=== PATIENT | female | born 1980 ===

== ENCOUNTER 2021-07-02 13:30 | Outpatient (RCR) | payer OTHER, SELFPAY ==
--- NOTE | 2021-04-28 10:46 | PTOPEVAL ---
Thank you for referring Kiara Sarmiento to [facility].? The patient is scheduled to be seen for therapy? 2 x/week for 8 weeks. Please review, sign, date and return this plan of care LEE. I agree with and certify that the following plan of care is medically necessary. 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 Then the symptoms progressed into shoulder and UE. TOS decompression for pec tenonotomy 03/28/21. She was not given post-op HEP. Subjective Information She reports symptoms are Query Text:As Reported By Patient/ getting worse after surgery. Family She c/o symptoms into tara. C/o muscular pain of chest region, c/o numbness of tara UE and hands, burning of inside of tara arms. She is unable to type or write. She limited to 5# of lifting. She is limited with reaching, ADL's, prolonged UE use, driving > 20 min. 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 She c/o difficulty with sleeping. She is sleeping on her back currently, she prefers the stomach. 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 Previous Treatments Previous Treatments For This Problem yes, 07/07 Pain Assessment Timing of Pain Assessment Timing of Pain Assessment Assessment Pain Scale Pain Scale Used Numeric (1 - 10) Self Report Pain Assessment Right Arm(s) Reported Pain Level 5 Pain Description Burning,Dull,Numbness, Radiating,Tender on Palpation, Tightness,Tingling Pain Frequency Chronic,Continuous Lowest Pain Intensity 4 Greatest Pain Intensity 8 Pain Aggravating Factors ADL's,Bending,Exercise/ Activity,Lifting,Prolonged Position Pain Behaviors Anxious Left Arm(s) Reported Pain Level 5 Pain Description Burning,Phantom,Radiating,
--- NOTE | 2021-05-15 15:11 | PTOPEVAL ---
Physical Therapy Progress Note Thank you for referring Kiara Sarmiento to [facility].? Kiara has attended 6 therapy visits to address UE impairments related to NTOS surgery. See summary below for progress and updated objective information. The patient is scheduled to be seen for therapy? 2 x/week for 6 weeks. Please review, sign, date and return this plan of care LEE. I agree with and certify that the following plan of care is medically necessary. 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 Then the symptoms progressed into shoulder and UE. TOS decompression for pec tenonotomy 03/28/21. She was not given post-op HEP. Subjective Information She reports the pain symptoms Query Text:As Reported By Patient/ have improved slightly with Family therapy and stretching, but the numbness and tingling has increased. C/o muscular pain of chest region and trap/shoulder blade region. She is unable to perform fine motor task without increased numbness. She limited to 5# of lifting. Continued limitations with reaching, ADL 's, prolonged UE use, driving > 20 min. She remains limited with yoga coordinator and repeated UE task. She c/o difficulty with sleeping. She is sleeping on her back currently, for 3-4 hr intervals. She sleeps in the bed. 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 Pain Assessment Right Arm(s) Reported Pain Level 6 Pain Description Burning,Dull,Numbness, Radiating,Tender on Palpation, Tightness,Tingling Pain Radiation Right Arm Pain Frequency Chronic,Continuous Lowest Pain Intensity 4 Greatest Pain Intensity 7 Pain Aggravating Factors ADL's,Bending,Exercise/ Activity,Lifting,Prolonged
--- NOTE | 2021-05-19 12:47 | PCPTNOTE ---
Patient called & cancelled scheduled appointment this date due to sickness.
--- NOTE | 2021-05-22 09:41 | PCPTNOTE ---
Patient called & cancelled scheduled appointment this date due to having another scheduled MD appointment.
--- NOTE | 2021-06-09 12:41 | PCPTNOTE ---
Patient called & cancelled scheduled appointment this date due to increase pain into UE and LE feeling unable to be in a car for one hour to get here for her appointment.
--- NOTE | 2021-06-16 08:52 | PCPTNOTE ---
Patient called & cancelled scheduled appointment this date due to having sick child at home.
--- NOTE | 2021-06-20 11:31 | PCPTNOTE ---
Patient called & cancelled scheduled appointment this date due to sickness.
--- NOTE | 2021-07-02 15:37 | PTOPEVAL ---
Physical Therapy Progress Note Thank you for referring Kiara Sarmiento to [facility].? See summary below for updated progress. The patient is scheduled to be seen for therapy?2x/week for 6 weeks. Please review, sign, date and return this plan of care LEE. I agree with and certify that the following plan of care is medically necessary. 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 Then the symptoms progressed into shoulder and UE. TOS decompression for pec tenonotomy 03/28/21. She was not given post-op HEP. Subjective Information She reports the strengthening Query Text:As Reported By Patient/ has increased the pain. She is Family only able to aman with the stretching. Her UE radiating symptoms have improved slightly, but the upper back cont. She reports the pain symptoms have improved slightly with therapy and stretching, but the numbness and tingling has increased. Continued limitations with reaching, ADL's, prolonged UE use, driving > 20 min. 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 She c/o difficulty with sleeping. She is sleeping on her on her sides currently, for 2 hr intervals, then unable to sleep due to pain. She sleeps in the bed. Pain Assessment Right Arm(s) Reported Pain Level 5 Pain Description Burning,Dull,Numbness, Radiating,Tender on Palpation, Tightness,Tingling Pain Frequency Chronic,Continuous Lowest Pain Intensity 4 Greatest Pain Intensity 7 Left Arm(s) Reported Pain Level 6 Pain Description Burning,Phantom,Radiating, Tender on Palpation,Tightness, Tingling Pain Frequency Chronic Lowest Pain Intensity 5 Greatest Pain Intensity 8 Cervical and Lumbar ROM C
--- NOTE | 2021-07-16 08:49 | PCPTNOTE ---
Patient called & cancelled scheduled appointment this date due to having sick child.
--- NOTE | 2021-07-23 09:07 | PCPTNOTE ---
Patient called & cancelled scheduled appointment this date due to visitor restrictions unable to bring child with for appointment and unable to find childcare.
--- NOTE | 2021-07-24 12:52 | PCPTNOTE ---
This treatment is being continued on visit number 12 to [id number]. Please see documentation on both accounts to view progress. Completed interventions, outcomes, and problems have been marked as Inactive to facilitate the copying of the Care plan routine for recurring accounts.
== END 2021-07-24 11:35 | disposition home or self-care (01) ==
LOC: ANHPT 13:30
DX: G54.0 Brachial plexus disorders (principal)
CPT/HCPCS: 97014; 97110; 97112; 97140; 97163; G0283

== ENCOUNTER 2021-08-11 11:00 | Outpatient (RCR) | payer OTHER, SELFPAY ==
--- NOTE | 2021-07-24 12:53 | PCPTNOTE ---
The treatment documented on this account is a continuation of the treatment documented on visit number 12 from [id number]. Please see documentation on both accounts to view progress. The Plan of Care has been transitioned and updated within the new V#. I have addressed and agree with the discipline specific Problems, Interventions, and Goals for the current certification period. Completed interventions, outcomes, and problems have been marked as Inactive to facilitate the copying of the Care plan routine for recurring accounts.
--- NOTE | 2021-07-29 10:45 | PCPTNOTE ---
Attempted to return pt's call on 07/28 and 07/29. No answer.
--- NOTE | 2021-08-11 14:23 | PTOPEVAL ---
Physical therapy progress note Thank you for referring Kiara Sarmiento to [facility].? Kiara has attended 13 visits with 7 missed visits. She has reached her maximal potential with tolerating therapy exercises and treatment activities. She demonstrates no changes with shoulder motion or scapular stability strength, slight increase of shoulder strength, no changes with UE function or UE symptoms. Her goals have been partially achieved. She has been provided a HEP and performs stretching as tolerating. Will hold chart open for possible f/u in 30 days. If she does not return within the next 30 days, will plan to [place] therapy services. Please review, sign, date and return this plan of care LEE. I agree with and certify that the following plan of care is medically necessary. 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 Then the symptoms progressed into shoulder and UE. TOS decompression for pec tenontotomy 03/28/21. She was not given post-op HEP. She is having injections next week. Subjective Information She is only aman the stretching Query Text:As Reported By Patient/ symptoms. Improves her muscle Family tightness, but no changes with her nerve pain. She reports increased back pain recently. She does feel like she is doing better will her posture. She wears her posture shirt for 20 min daily. Continued limitations with reaching, ADL's, prolonged UE use, reaching in all directions. She c/o weakness with her UE in front of her. She is able to perform UE task close to her body. 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 She c/o difficulty with sleeping. Pain Assessment Right Arm(s) Reported Pain Level 5 Pain Description Burning,Numbness,Radiating, Shooting,Tingling Pain Radiation Right Arm Pain Frequency Chronic,Continuous Lowest Pain Intensity 4 Greatest Pain Intensity 7 Pain Aggravating Factors ADL's,Exercise/Activity, L
--- NOTE | 2021-09-08 08:28 | PCPTNOTE ---
Admitting Provider: Attending Provider: Francois Headley Patient:Kiara Sarmiento Date of :1980 Physical Therapy Discharge Note Patient has not returned for any further treatments since 08/11/2021, therefore she will be discharged at this time. Patient?s initial visit was on 04/28/21 she had a total of 13 visits with 7 missed visits. The goals have been partially met at this time. She has been provided a HEP to maintain her level of function. Thank you for referring this patient to [facility]. Please review, sign, date and return this discharge summary LEE. I have been updated about the patient's current status and I agree with discharge from the above service at this time. Referring Physician Date
== END 2021-09-08 16:49 | disposition home or self-care (01) ==
LOC: ANHPT 11:00
DX: G54.0 Brachial plexus disorders (principal)
CPT/HCPCS: 20560; 97014; 97110; 97140; G0283